=== PATIENT | female | born 1980 | race African-American/Black ===

== ENCOUNTER 2019-01-10 15:57 | Emergency (ER) | payer BC, MEDICAID ==
[~2019-01-10] VITALS: Ht 167.6 cm; Wt 62.6 kg
[~2019-01-10 15:57] MED LIST: ACETAMINOPHEN500 M3 ORAL; AZITHROMYCIN250 MG ORAL
[2019-01-10] MEDS ORDERED: NKM (16:09)
[2019-01-10] MEDS ORDERED: TESSALON PERLE100 MG ORAL (16:35)
[2019-01-10] MEDS ORDERED: SUDAFED PE PRE1 EACH PO (16:35)
--- NOTE | 2019-01-10 16:35 | Emergency Room Report ---
History of Present Illness General Chief Complaint: Upper Respiratory Illness Source: Patient Present Illness HPI 38-year-old female patient presents ER complaining of cough, congestion, flulike symptoms for the past 2 weeks. Reports sick contacts at home with similar symptoms. Denies recent travel outside the country. Denies chest pain or shortness of breath. Denies history of asthma or heart attack. Denies abdominal pain. Denies vomiting or diarrhea. Reports generalized aches and pains. Denies other aggravating or relieving factors. States his been taking [id number] medication at home however stopped taking medication with the symptoms resolve. States that the symptoms will then return after stopping taking medication. Reports fever during this time, currently afebrile in the ER. States has been taking [id number] medications for relief of symptoms. Allergies: Coded Allergies: No Known Allergies (Unverified , 02/25/14) Patient History Past Medical History: see triage record Last Menstrual Period: 01/07/2019 Reviewed Nursing Documentation: PMH: Agreed; PSxH: Agreed Nursing Documentation-PMH Past Medical History: No Stated History Review of Systems All Other Systems: negative except mentioned in HPI Physical Exam Vital Signs Date Time Temp Pulse Resp B/P (MAP) Pulse Ox O2 Delivery O2 Flow Rate FiO2 01/10/19 16:06 98.2 85 16 114/77 97 Room Air Sp02 EP Interpretation: reviewed, normal General Appearance: well appearing, no apparent distress, alert, GCS 15, non- toxic Head: normocephalic, atraumatic Eyes: bilateral eye normal inspection, bilateral eye PERRL ENT: hearing grossly normal, normal pharynx, no angioedema, normal voice, TMs + canals normal, uvula midline, moist mucus membranes, nasal congestion Neck: full range of motion, no meningismus, no bony tend Respiratory: lungs clear, normal breath sounds, no rhonchi, no respiratory distress, no accessory muscle use, no wheezing, speaking full sentences Cardiovascular #1: regular rate, rhythm, no edema Gastrointestinal: non tender, soft, no mass, non-distended, no guarding, no rebound Genitourinary: no CVA tenderness Musculoskeletal: back normal, digits/nails normal, gait/station normal, normal range of motion, non-tender Neurologic: alert, oriented x3, responsive, motor strength/tone normal, sensory intact Psychiatric: mood/affect normal Skin: no rash Lymphatic: no adenopathy Medical Decision Making PA Attestation Dr. Feldman is my supervising Physician whom patient management has been discussed with. Diagnostic Impression: Primary Impression: Upper respiratory infection ER Course Pt presents to ED c/o cough, congestion. DDX considered but are not limited to influenza, viral URI, pneumonia, strep throat, rhinitis, sinusitis, otitis media, otitis externa. VITAL SIGNS are WNL, patient is afebrile. ER COURSE: Lungs clear to auscultation, no wheezes, rhonci or rales. patient afebrile. Low suspicion for pneumonia, will not order CXR at this time. no tonsillar exudates, no pharyngeal erythema, history of cough, no fever, no stridor, uvula midline, low suspicion for peritonsillar abscess. Likely viral etiology of symptoms. Symptomatic treatment. drink plenty of fluids. Salt water gargles for sore throat. Followup with PCP for further treatment and/or referral as needed. ER precautions given. Advised patient continue taking medications and not discontinue medications when symptoms resolve. DISCHARGE: At this time pt is stable for d/c to home. Patient is resting comfortably, in no acute distress, nontoxic appearing. Patient to take medications as instructed Will provide with patient care instructions and any necessary prescriptions. Care plan and follow-up instructions provided. Patient instructed to follow-up with primary care provider in 3 - 5 days. Patient questions asked and answered. Patient reports understanding and agreement to treatment plan. ER precautions given. Patient instructed to return to ER immediately for any new or worsening of symptoms including but not limited to increasing SOB, persistent fever, intractable vomiting. - Please note that this Emergency Department Report was dictated using [employer]sander setter technology software, occasionally this can lead to erroneous entry secondary to interpretation by the dictation equipment. Last Vital Signs Date Time Temp Pulse Resp B/P (MAP) Pulse Ox O2 Delivery O2 Flow Rate FiO2 01/10/19 16:06 98.2 85 16 114/77 97 Room Air Disposition: HOME, SELF-CARE Condition: Stable Scripts D-Methorphan/PE/Acetaminophen (Sudafed PE Pressure+Pain+Cough) 1 Each Tablet 1 EACH PO BID, #24 TAB Prov: James Fischer P.A. 01/10/19 Benzonatate* (TESSALON PERLE*) 100 Mg Capsule 100 MG ORAL THREE TIMES A DAY, #30 PERLE Prov: James Fischer 01/10/19 Patient Instructions: Upper Respiratory Infection, Adult Additional Instructions: Followup with primary care provider in 3 -5 days. Take medications as directed. Patient questions asked and answered. ER precautions given, patient instructed to return to ER immediately for any new or worsening of symptoms. James Fischer Jan 10, 2019 16:35
[2019-01-10 16:42] VITALS: BP 114/77
--- NOTE | 2019-01-10 16:43 | NUR ---
Patient was evaluated, treated and discharged with aftercare instructions by MD/PA
== END 2019-01-10 16:49 | disposition home or self-care (01) ==
LOC: EMR 16:33
DX: J06.9 Acute upper respiratory infection, unspecified (principal)
CPT/HCPCS: 99282

== ENCOUNTER 2019-04-25 20:34 | Emergency (ER) | payer SELFPAY ==
[~2019-04-25] VITALS: Ht 167.6 cm; Wt 63.5 kg
[~2019-04-25 20:34] MED LIST changes: +NKM; +SUDAFED PE PRE1 EACH PO; +TESSALON PERLE100 MG ORAL
--- NOTE | 2019-04-25 20:52 | NUR ---
ED Nurse Note: Received report. Pt from home, ambulatory, AAOx4, c/o having abnormally long period since April 13, 2019 until present day. Pt stated her periods are usually 3 days long. Pt states that when she thought she was cooming off her period she attempted to have intercourse but started to bleed more and has been bleeding heavily ever since attempting to have intercourse. Will assess and carry out ER MD's orders.
[2019-04-25 20:55] VITALS: BP 124/77
--- NOTE | 2019-04-25 20:59 | Emergency Room Report ---
History of Present Illness General Chief Complaint: Pelvic Pain Source: Patient Present Illness HPI Patient is a 38-year-old female presented after increased pelvic pain. Patient reports having bleeding for several weeks intermittently. She reports having bleeding for the past 2 days. Patient had not been vomiting. She reports being on her normal menses. She states that she been having irregular. For several weeks and had previously been referred to [facility]. She is G7, P2 she denies any fever or lightheadedness. And states that she had a previous tubal ligation in 2017. Allergies: Coded Allergies: No Known Allergies (Unverified , 02/25/14) Patient History Past Medical History: see triage record Last Menstrual Period: currently on period Reviewed Nursing Documentation: PMH: Agreed; PSxH: Agreed Nursing Documentation-PMH Past Medical History: No Stated History Review of Systems All Other Systems: negative except mentioned in HPI Physical Exam Vital Signs Date Time Temp Pulse Resp B/P (MAP) Pulse Ox O2 Delivery O2 Flow Rate FiO2 04/25/19 20:39 97.3 87 18 112/74 (87) 94 Room Air General Appearance: well appearing, no apparent distress, alert, GCS 15, non- toxic Head: normocephalic, atraumatic ENT: hearing grossly normal, normal voice Neck: full range of motion, supple Respiratory: no respiratory distress, speaking full sentences Cardiovascular #1: normal inspection Gastrointestinal: normal inspection, normal bowel sounds, non tender, soft Musculoskeletal: no calf tenderness Neurologic: normal inspection, alert, oriented x3, responsive, security systems administrator III-XII nml as tested, normal gait Psychiatric: mood/affect normal Skin: normal inspection, no rash Medical Decision Making Diagnostic Impression: Primary Impression: Fibroids ER Course Patient presented for increased vaginal bleeding and lower abdominal pain. Differential diagnosis include was not limited to fibroid uterus, ectopic , ovarian cyst among others. Because of complexity of patient's case laboratory testing and imaging studies were ordered. Patient started on IV fluids and given ibuprofen. Laboratory testing was unremarkable. Pelvic ultrasound showed evidence of fibroid uterus. Patient was advised to follow-up with her previously scheduled [facility] appointment. Patient appears to be stable for outpatient management. Labs Test 04/25/19 20:51 04/25/19 21:07 Urine HCG, Qualitative Negative (NEGATIVE) White Blood Count 3.9 K/UL (4.8-10.8) Red Blood Count 4.11 M/UL (4.20-5.40) Hemoglobin 12.7 G/DL (12.0-16.0) Hematocrit 34.4 % (37.0-47.0) Mean Corpuscular Volume 84 FL (80-99) Mean Corpuscular Hemoglobin 30.9 PG (27.0-31.0) Mean Corpuscular Hemoglobin Concent 36.9 G/DL (32.0-36.0) Red Cell Distribution Width 10.8 % (11.6-14.8) Platelet Count 218 K/UL (150-450) Mean Platelet Volume 5.9 FL (6.5-10.1) Neutrophils (%) (Auto) 25.0 % (45.0-75.0) Lymphocytes (%) (Auto) 53.2 % (20.0-45.0) Monocytes (%) (Auto) 10.8 % (1.0-10.0) Eosinophils (%) (Auto) 10.1 % (0.0-3.0) Basophils (%) (Auto) 0.9 % (0.0-2.0) Prothrombin Time 10.3 SEC (9.30-11.50) Prothromb Time International Ratio 1.0 (0.9-1.1) Activated Partial Thromboplast Time 25 SEC (23-33) Sodium Level 137 MMOL/L (136-145) Potassium Level 3.6 MMOL/L (3.5-5.1) Chloride Level 105 MMOL/L (98-107) Carbon Dioxide Level 29 MMOL/L (21-32) Anion Gap 3 mmol/L (5-15) Blood Urea Nitrogen 9 mg/dL (7-18) Creatinine 0.9 MG/DL (0.55-1.30) Estimat Glomerular Filtration Rate > 60 mL/min (>60) Glucose Level 80 MG/DL (74-106) Calcium Level 8.5 MG/DL (8.5-10.1) Total Bilirubin 0.3 MG/DL (0.2-1.0) Aspartate Amino Transf (AST/SGOT) 19 U/L (15-37) Alanine Aminotransferase (ALT/SGPT) 21 U/L (12-78) Alkaline Phosphatase 56 U/L (46-116) Total Protein 6.8 G/DL (6.4-8.2) Albumin 3.6 G/DL (3.4-5.0) Globulin 3.2 g/dL Albumin/Globulin Ratio 1.1 (1.0-2.7) Last Vital Signs Date Time Temp Pulse Resp B/P (MAP) Pulse Ox O2 Delivery O2 Flow Rate FiO2 04/25/19 20:39 97.3 87 18 112/74 (87) 94 Room Air Status: improved Disposition: HOME, SELF-CARE Condition: Stable Scripts Ibuprofen* (MOTRIN*) 600 Mg Tablet 600 MG ORAL Q8H PRN for For Pain, #30 TAB 0 Refills Prov: Cedrick Ding MD 04/25/19 Cedrick Ding MD Apr 25, 2019 20:59
[2019-04-25 21:19] LABS: BASOPHILS % (AUTO) 0.9 % (0.0-2.0); EOSINOPHILS % (AUTO) 10.1 % (0.0-3.0); HEMATOCRIT 34.4 % (37.0-47.0); HEMOGLOBIN 12.7 G/DL (12.0-16.0); LYMPHOCYTES % (AUTO) 53.2 % (20.0-45.0); MEAN CORPUSCULAR VOLUME 84 FL (80-99); MONOCYTES % (AUTO) 10.8 % (1.0-10.0); PLATELET COUNT 218 K/UL (150-450); RED BLOOD COUNT 4.11 M/UL (4.20-5.40); RED CELL DISTRIBUTION WIDTH 10.8 % (11.6-14.8); WHITE BLOOD COUNT 3.9 K/UL (4.8-10.8)
--- NOTE | 2019-04-25 21:30 | NUR ---
ED Nurse Note: Pt receiving US. Awaiting return.
[2019-04-25 21:35] LABS: ANION GAP 3 mmol/L (5-15); BLOOD UREA NITROGEN 9 mg/dL (7-18); CALCIUM 8.5 MG/DL (8.5-10.1); CARBON DIOXIDE 29 MMOL/L (21-32); CHLORIDE 105 MMOL/L (98-107); CREATININE 0.9 MG/DL (0.55-1.30); POTASSIUM 3.6 MMOL/L (3.5-5.1); SODIUM 137 MMOL/L (136-145)
[2019-04-25 21:40] LABS: ALANINE AMINOTRANSFERASE 21 U/L (12-78); ALBUMIN 3.6 G/DL (3.4-5.0); ALBUMIN/GLOBULIN RATIO 1.1 (1.0-2.7); ALKALINE PHOSPHATASE 56 U/L (46-116); ASPARTATE AMINO TRANSFERASE 19 U/L (15-37); BILIRUBIN,TOTAL 0.3 MG/DL (0.2-1.0)
[2019-04-25] MEDS ORDERED: IBUPROFEN600 MG ORAL (22:07)
--- NOTE | 2019-04-25 22:30 | NUR ---
ED Nurse Note: Pt cleared by health care Provider for discharge. DC instructions/prescription was given and explained to pt and verbalized understanding of teachings. All medical deviecs such as ID band and IV line removed. Pt is AAO x4, ambulatory and left with all personal belongings.
--- NOTE | 2019-04-26 16:25 | Diagnostic Imaging Report ---
Indication: Pelvic pain, negative test Technique: Transabdominal and transvaginal images. Doppler interrogation of the bilateral ovaries Comparison: none Findings: Uterus is retroverted, measures 8.9 cm length by 3.7 cm AP. Endometrium measures 5 mm thick. Heterogeneous myometrium, with multiple focal areas of slightly decreased echogenicity measuring up to 14 mm in diameter. Calcifications are also seen within the myometrium. Right ovary measures 3.7 cm length. Left ovary measures 3.8 cm length. Both ovaries demonstrate normal flow on Doppler interrogation. Trace free fluid is noted near the uterine fundus. Small cervical nabothian cysts are demonstrated. Impression: Multiple uterine fibroids Small amount of free pelvic fluid, most likely physiologic Small cervical nabothian cysts Normal ovaries This agrees with the preliminary interpretation provided overnight by Dr. Fairbanks This agrees with the preliminary interpretation provided overnight by [facility] teleradiology service.
== END 2019-04-25 22:30 | disposition home or self-care (01) ==
LOC: EMR 21:17
DX: D25.9 Leiomyoma of uterus, unspecified (principal); N88.8 Other specified noninflammatory disorders of cervix uteri; Z98.51 Tubal ligation status
CPT/HCPCS: 36415; 76830; 76856; 80053; 81025; 85025; 85610; 85730; 86850; 86900; 86901; 99284